=== PATIENT | male | born 1970 | race Caucasian/White ===

== ENCOUNTER 2022-06-30 14:59 | Emergency (ER) | payer SELFPAY ==
[~2022-06-30] VITALS: Ht 160 cm; Wt 78.0 kg
[2022-06-30 20:53] VITALS: BP 119/79
== END 2022-06-30 20:55 | disposition home or self-care (01) ==
LOC: ER 15:08
DX: F10.229 Alcohol dependence with intoxication, unspecified (principal); Y90.0 Blood alcohol level of less than 20 mg/100 ml; R40.20 Unspecified coma
CPT/HCPCS: 82962; 99283